=== PATIENT | female | born 1955 | race Caucasian/White ===

== ENCOUNTER 2022-01-05 08:37 | Emergency (ER) | payer BC ==
[2022-01-05 08:56] VITALS: BP 156/61
--- NOTE | 2022-01-05 09:02 | ED Physician Documentation ---
PD HPI HEENT - Stated complaint Stated Complaint: COUGH,CONGESTIO - Chief complaint Chief Complaint: Resp - History obtained from History obtained from: Patient - Additional information Additional information: 66-year-old woman with history of COPD presents with 2 days of productive cough and shortness of breath without fevers. Her grand son got her sick. She also has oral thrush. Review of Systems Constitutional: denies: Fever, Chills Nose: reports: Rhinorrhea / runny nose, Congestion, Reviewed and negative Respiratory: reports: Dyspnea, Cough PD PAST MEDICAL HISTORY - Present Medications Home Medications: Ambulatory Orders Medication Instructions Recorded Confirmed Doxycycline Hyclate 100 mg PO BID #14 cap 01/05/22 Ipratropium/Albuterol [Combivent 1 puffs IH QID #1 each 01/05/22 Respimat] Nystatin [Mycostatin] 5 ml PO QID #300 ml 01/05/22 guaiFENesin/CODEINE [Robitussin AC] 5 - 10 ml PO Q6H PRN #120 ml 01/05/22 predniSONE [Deltasone] 20 mg PO [id number] #21 tab 01/05/22 - Allergies Allergies/Adverse Reactions: Allergies Allergy/AdvReac Type Severity Reaction Status Date / Time No Known Drug Allergies Allergy Verified 01/05/22 08:53 PD ED PE NORMAL - Vitals Vital signs reviewed: Yes - General General: Alert and oriented X 3, No acute distress - HEENT HEENT: Other (Mild thrush on the soft palate) - Cardiac Cardiac: RRR, No murmur - Respiratory Respiratory: No respiratory distress, Other (Moderate expiratory wheezings and mildly diminished without focal findings) - Abdomen Abdomen: Normal bowel sounds, Soft, Non tender - Neuro Neuro: Alert and oriented X 3, Normal speech Results - Vitals Vitals: Vital Signs - 24 hr 01/05/22 08:47 Temperature 36.9 C Heart Rate 73 Respiratory 19 Rate Blood Pressure 156/61 H O2 Saturation 99 Oxygen O2 Source Room air Departure - Departure Disposition: 01 Home, Self Care Clinical Impression: COPD exacerbation, Thrush Condition: Good Record reviewed to determine appropriate education?: Yes Instructions: ED COPD Flare Prescriptions: Ipratropium/Albuterol [Combivent Respimat] 1 puffs IH QID #1 each predniSONE [Deltasone] 20 mg PO [id number] #21 tab Doxycycline Hyclate 100 mg PO BID #14 cap Nystatin [Mycostatin] 5 ml PO QID #300 ml guaiFENesin/CODEINE [Robitussin AC] 5 - 10 ml PO Q6H PRN #120 ml PRN Reason: Cough Comments: I sent your prescriptions electronically to [facility] in [place]. Call your doctor to arrange a follow-up appointment, make the next available appointment. In the interim, return anytime if worse or if new symptoms develop.
== END 2022-01-05 09:10 | disposition home or self-care (01) ==
LOC: ED 08:37
DX: B37.9 Candidiasis, unspecified (principal); J44.1 Chronic obstructive pulmonary disease with (acute) exacerbation
CPT/HCPCS: 99283; 99284